=== PATIENT | male | born 1950 | race Caucasian/White ===

== ENCOUNTER 2016-06-30 17:27 | Emergency (ER) | payer OTHER ==
[~2016-06-30] VITALS: Ht 177.8 cm; Wt 99.8 kg
[~2016-06-30 17:27] MED LIST: LEVOTHYROXIN0.125 M1 PO; VIAGRA25 MG PO; VYTORIN 10 MG-21 TAB PO
--- NOTE | 2016-06-30 18:28 | ED HEAD/FACIAL INJ COMPLAINT ---
History of Present Illness General Chief Complaint: Facial or Head Injury Stated Complaint: PT HIT HIS HEAD ON A PIPE Source: patient Exam Limitations: no limitations Vital Signs & Intake/Output Vital Signs & Intake/Output Vital Signs Date Time Temp Pulse Resp B/P Pulse O2 O2 Flow FiO2 Ox Delivery Rate 06/30 1845 84 18 148/81 99 Room Air 06/30 1813 98 Room Air 06/30 1736 97.6 96 18 149/84 97 Room Air ED Intake and Output 07/01 0000 06/30 1200 Intake Total Output Total Balance Patient 220 lb Weight Allergies Coded Allergies: MDX - Shellfish (SHELLFISH) (Severe, HIVES 12/31/13) Reconcile Medications Ezetimibe/Simvastatin (Vytorin 10 MG-20 MG) 1 TAB TAB 1 TAB PO DAILY CHOLESTEROL (Reported) Levothyroxine Sodium 0.125 MG TAB 1 TAB PO DAILY THYROID (Reported) Sildenafil Citrate (Viagra) 25 MG TABLET 1 TAB PO DAILY NEEDED PRN ED ( Reported) Triage Note: PT STATSE HE BUMPED HIS HEAD ON A PIPE AND NOW HAS A LAC TO THE TOP OF HIS HEAD, BLEEDING CONTROLED IN TRIAGE. PT STATES HE IS NOT UTD WITH HIS TETANUS. Triage Nurses Notes Reviewed? yes Onset: Abrupt Severity: mild Severity Numbers: 2 HPI: Patient is a 66-year-old male who presents to emergency room stating that while at work today patient stood up and struck the top aspect of his head and scalp to a metal pipe in which he suffered a laceration in which bleeding was controlled prior to arrival. Tetanus is unknown. Denies any loss of consciousness. Denies any neck pain back pain and blurred vision headaches, vomiting and is otherwise without complaints. No medications given prior to arrival (ROCAEL YOO) Past History Travel History Traveled to [place] past 21 day No Medical History Any Pertinent Medical History? see below for history Cardiovascular: hyperlipidemia Endocrine: hypothyroidism Surgical History Surgical History: non-contributory Psychosocial History What is your primary language Croatian Tobacco Use: Quit >30 days ago ETOH Use: denies use Illicit Drug Use: denies illicit drug use Family History Hx Contributory? No (ROCAEL YOO) Review of Systems Review of Systems Constitutional: Reports: no symptoms. EENTM: Reports: no symptoms. Respiratory: Reports: no symptoms. Cardiovascular: Reports: no symptoms. GI: Reports: no symptoms. Genitourinary: Reports: no symptoms. Musculoskeletal: Reports: no symptoms. Skin: Reports: see HPI. Neurological/Psychological: Reports: see HPI. Denies: headache. Hematologic/Endocrine: Reports: see HPI, bleeding. Immunologic/Allergic: Reports: no symptoms. All Other Systems: Reviewed and Negative (ROCAEL YOO) Physical Exam Physical Exam General Appearance: no apparent distress, alert Cranial Nerves: normal hearing, normal speech, PERRL Comments: Well-developed well-nourished person in no acute distress HEENT: Normal EENT exam, extraocular motion intact, no nystagmus. Pupils equally round and reactive to light and accommodation. Nose is atraumatic. External auditory canal and Tympanic membranes clear. Pharynx normal. No swelling or edema. Neck: Supple, no lymphadenopathy, normal range of motion without pain or tenderness No central spinous tenderness Back: Nontender, no CVA tenderness. No central spinous tenderness Cardiovascular: Regular rate and rhythms no murmurs rubs or gallops, normal JVP Respiratory: Chest nontender. No respiratory distress.breath sounds clear to auscultation bilaterally Abdomen: Soft, nontender nondistended, no appreciable organomegaly. Normal bowel sounds. No ascites Extremity: No edema, no calf tenderness to palpation, normal and equal pulses. Neuro: Alert oriented x3, motor sensory normal, cranial nerves II through XII grossly intact Negative Romberg. Skin: See diagram Psych: Mood and affect is normal, memory and judgment is normal. Diagram Head: 1) 1 cm subcutaneous laceration noted with no active bleeding nontender no surrounding hematoma (ROCAEL YOO) Progress Differential Diagnosis: c-spine injury, facial fracture, globe injury, ICH, orbit fracture, skull fracture Plan of Care: Patient currently shows no garcia signs no hemo-TYMPANUM no concerns of basilar skull fracture. Cranial nerves intact. Patient was asymptomatic. No central spinous pain. No loss of consciousness acting at baseline normal steady gait patient does not require CT scan to rule out ICH this time. The scalp laceration was cleaned with peroxide and Betadine and sterile water and which then #2 emma were applied which margins were revised bacitracin was applied patient tolerated well. Tetanus was updated (ROCAEL YOO) Departure Departure Disposition: HOME OR SELF CARE Condition: Stable Clinical Impression Primary Impression: Scalp laceration Referrals: DEXTER LYNCH,GILBERTO Arvizu (PCP/Family) Additional Instructions: DISCUSSED BEGIN TO APPLY BACITRACIN TO THE AREA ONCE A DAY FOR THE FOLLOWING 4 DAYS. IF signs of infection occur such as redness, pain, swelling, discharge return to emergency room immediately. Return to emergency room in 7 days for staple removal. If symptoms worsen return to emergency room Departure Forms: Customer Survey General Discharge Information (RADHA GONSALEZ,ROCAEL) PA/TERMITE TECHNICIAN Co-Sign Statement Statement: ED Attending supervision documentation- [X] I saw and evaluated the patient. I have also reviewed all the pertinent lab results and diagnostic results. I agree with the findings and the plan of care as documented in the PA's/TERMITE TECHNICIAN's documentation. [X] I have reviewed the ED Record and agree with the PA's/TERMITE TECHNICIAN's documentation. [] Additions or exceptions (if any) to the PAs/TERMITE TECHNICIAN's note and plan are summarized below: [] (KYLE LYNCH,ANGELI)
[2016-06-30 18:45] VITALS: BP 148/81
== END 2016-06-30 18:41 ==
LOC: ERH 17:27
DX: S01.01XA Laceration without foreign body of scalp, initial encounter (principal); W22.8XXA Striking against or struck by other objects, initial encounter
CPT/HCPCS: 90471; 90714

== ENCOUNTER 2016-07-14 18:50 | Emergency (ER) | payer OTHER ==
[~2016-07-14] VITALS: Ht 177.8 cm; Wt 99.8 kg
[2016-07-14 19:23] VITALS: BP 154/70
--- NOTE | 2016-07-14 19:27 | ED ANIMAL BITE/WOUND CHECK ---
History of Present Illness General Chief Complaint: Suture Removal/Wound Recheck Stated Complaint: STAPLE REMOVAL Source: patient, old records Exam Limitations: no limitations Vital Signs & Intake/Output Vital Signs & Intake/Output Vital Signs Date Time Temp Pulse Resp B/P Pulse O2 O2 Flow FiO2 Ox Delivery Rate 07/14 1922 97.7 86 20 154/70 97 Room Air Room Air Allergies Uncoded Allergies: LOBSTER (Severe, ANAPHYLAXIS, THROAT, DIARRHEA, RASH 07/14/16) Reconcile Medications Ezetimibe/Simvastatin (Vytorin 10 MG-20 MG) 1 TAB TAB 1 TAB PO DAILY CHOLESTEROL (Reported) Levothyroxine Sodium 0.125 MG TAB 1 TAB PO DAILY THYROID (Reported) Sildenafil Citrate (Viagra) 25 MG TABLET 1 TAB PO DAILY NEEDED PRN ED ( Reported) Triage Note: PT TO ED FOR STAPLE REMOVAL (2) FROM TOP OF HEAD, BEEN IN 2 WEEKS TODAY. Triage Nurses Notes Reviewed? yes Onset: Abrupt Duration: week(s): (1) Timing: recent history Injury Environment: home Severity: mild Severity Numbers: 3 No Modifying Factors: none Associated Symptoms: denies HPI: 66-year-old male presents for staple removal status post sustaining laceration to his scalp one week ago after hitting his head on a metal pipe. The patient denies any symptoms at this time there is no pain (ROCAEL HUITRON) Past History Travel History Traveled to [place] past 21 day No Medical History Any Pertinent Medical History? 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 No (ROCAEL HUITRON) Review of Systems Review of Systems Constitutional: Reports: see HPI. All Other Systems: Reviewed and Negative Comments Review of systems: See HPI, All other systems negative. Constitutional, no chills no fever, no malaise HEENT: No visual changes no sore throat no congestion Cardiovascular: No chest pain , no palpitation Skin, no rashes, no change in skin Respiratory: No dyspnea no cough no sputum GI: No nausea no vomiting, no diarrhea : No dysuria Muscle skeletal: No joint pain, no joint swelling, no back pain, no neck pain, Neurologic: No numbness no headache Psych: No stress n Heme/endocrine: No bruising no bleeding Immunology: No lymphadenopathy (ROCAEL HUITRON) Physical Exam Physical Exam General Appearance: well developed/nourished, no apparent distress, alert, awake Comments: Well-developed well-nourished patient in no apparent distress. HEENT: Stable 2 noted to the parietal scalp, there is no surrounding induration and fluctuance tenderness no erythema, extraocular motion intact Neck: Supple, FROM, back: from Cardiovascular: Regular rate and rhythms no murmurs rubs Respiratory: No respiratory distress. Patient speaking in full complete sentences. Breath sounds clear to auscultation bilaterally: NO W/R/R Extremities: full range of motion Neuro: Alert and oriented x3 Skin: Warm & dry;No appreciable rash on exposed skin Psych: Mood affect normal, normal memory normal judgment. (ROCAEL HUITRON) Progress Differential Diagnosis: abscess, cellulitis Plan of Care: [place] 2 removed by me there is no wound dehiscence patient tolerated procedure well (ROCAEL HUITRON) Departure Departure Time of Disposition: 1926 Disposition: HOME OR SELF CARE Condition: Stable Clinical Impression Primary Impression: Removal of staple Referrals: DEXTER LYNCH,GILBERTO Arvizu (PCP/Family) Departure Forms: Customer Survey General Discharge Information (ROCAEL HUITRON) PA/SCRAP PILER Co-Sign Statement Statement: ED Attending supervision documentation- [] I saw and evaluated the patient. I have also reviewed all the pertinent lab results and diagnostic results. I agree with the findings and the plan of care as documented in the PA's/SCRAP PILER's documentation. [X] I have reviewed the ED Record and agree with the PA's/SCRAP PILER's documentation. [] Additions or exceptions (if any) to the PAs/SCRAP PILER's note and plan are summarized below: [] (KYLE LYNCH,ANGELI)
== END 2016-07-14 20:00 ==
LOC: ERH 18:50
DX: S01.01XD Laceration without foreign body of scalp, subsequent encounter (principal)
CPT/HCPCS: 99281

== ENCOUNTER 2017-08-26 11:22 | Emergency (ER) | payer OTHER ==
[~2017-08-26] VITALS: Ht 177.8 cm; Wt 102.1 kg
[2017-08-26 11:46] LABS: ABSOLUTE BASOPHIL COUNT 0 /CUMM (0.0-0.2); ABSOLUTE EOSINOPHIL COUNT 0.1 /CUMM (0.0-0.7); ABSOLUTE LYMPH COUNT 2.5 /CUMM (1.2-3.4); ABSOLUTE MONOCYTE COUNT 0.6 /CUMM (0.10-0.60); BASOPHIL % 0.6 % (0.0-2.0); EOSINOPHIL % 1.6 % (0-5); GRANULOCYTE % 55.4 % (42.2-75.2); HEMATOCRIT 47.6 % (42-52); MEAN CORPUSCULAR HGB 29.5 PG (27.0-31.0); MEAN CORPUSCULAR HGB CONC 33.2 G/DL (33.0-37.0); MEAN CORPUSCULAR VOLUME 89.1 FL (80.0-94.0); MEAN PLATELET VOLUME 6.6 FL (7.4-10.4); PLATELET COUNT 251 /CUMM (130-400); RBC DISTRIBUTION WIDTH 13.2 % (11.5-14.5); RED BLOOD CELL CT 5.34 /CUMM (4.70-6.10); WHITE BLOOD CELL COUNT 7.2 /CUMM (4.8-10.8)
--- NOTE | 2017-08-26 12:42 | ED GENERAL ADULT ---
History of Present Illness General Chief Complaint: Dizziness Stated Complaint: SIB DR RENTERIA, FOR LIGHT HEADEDNESS DIZZINESS Source: patient Exam Limitations: no limitations Vital Signs & Intake/Output Vital Signs & Intake/Output Vital Signs Date Time Temp Pulse Resp B/P B/P Pulse O2 O2 Flow FiO2 Mean Ox Delivery Rate 08/26 1542 97.6 66 20 160/90 97 Room Air 08/26 1344 Room Air Room Air 08/26 1133 97.0 72 15 152/105 97 Room Air Room Air ED Intake and Output 08/27 0000 08/26 1200 Intake Total 1000 Output Total Balance 1000 Intake, IV 1000 Patient 225 lb Weight Weight Reported by Patient Measurement Method Allergies Uncoded Allergies: LOBSTER (Severe, ANAPHYLAXIS, THROAT, DIARRHEA, RASH 07/14/16) Reconcile Medications Aspirin (Ecotrin*) 81 MG TABLET.DR 1 TAB PO DAILY HEART HEALTH (Reported) Ezetimibe/Simvastatin (Vytorin 10-20 MG Tablet) 10 MG-20 MG TABLET 1 TAB PO DAILY CHOLESTEROL (Reported) Levothyroxine Sodium 125 MCG TABLET 1 TAB PO DAILY THYROID (Reported) Sildenafil Citrate (Viagra) 50 MG TABLET 1 TAB PO AD PRN ERECTILE DYSFUNCTION (Reported) 1 hour before sexual activity Triage Note: PT SENT TO ED BY DR. RENTERIA FOR LIGHT HEADEDNESS AND DIZZINESS WORSE WITH STANDING X 3 DAYS. PT DENIES CHEST PAIN, CHANGE IN VISION. HYPERTENSIVE IN TRIAGE 152/105. EKG DONE IN TRIAGE. Triage Nurses Notes Reviewed? yes Onset: Abrupt Duration: years Timing: intermittent HPI: 67 y/o male with h/o HLD and hypothyroid presenting with intermittent light headedness. Pt reports intermittent light headedness that only occurs with standing up too quickly, has occured for approx the past 20 years. Has never sought medical evaluation because it is usually infrequent and on avg occurs 2-3 times a month. Pt presents to the ED now because he was not feeling well yesterday, reports fatigue and decreased po intake, and states that the light headedness occur constantly throughout the daty yesterday each time he stood up too quickly. Is feeling better today, feels back to baseline, and denies light headedness today. Denies CP or SOB with any of the episodes. Not on any BP meds. (Viri GONSALEZ,Razia) Past History Travel History Traveled to [place] past 21 day No Medical History Any Pertinent Medical History? 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 No (Razia Quinteros) Review of Systems Review of Systems Constitutional: Reports: no symptoms. EENTM: Reports: no symptoms. Respiratory: Reports: no symptoms. Cardiovascular: Reports: no symptoms. GI: Reports: no symptoms. Genitourinary: Reports: no symptoms. Musculoskeletal: Reports: no symptoms. Skin: Reports: no symptoms. Neurological/Psychological: Reports: see HPI, other (light headedness). Hematologic/Endocrine: Reports: no symptoms. Immunologic/Allergic: Reports: no symptoms. (Razia Quinteros) Physical Exam Physical Exam General Appearance: well developed/nourished, no apparent distress, alert, awake , comfortable Head: atraumatic, normal appearance Eyes: Bilateral: normal appearance, PERRL, EOMI. Ears, Nose, Throat: normal ENT inspection Neck: normal inspection, supple Respiratory: normal breath sounds, lungs clear Cardiovascular: regular rate/rhythm, normal peripheral pulses Gastrointestinal: soft, non-tender Back: normal inspection Extremities: normal inspection Neurologic/Psych: no motor/sensory deficits, awake, alert, oriented x 3, normal gait, normal mood/affect, office sweeper II-XII nml as tested, normal cerebellar function Reflexes: 2+: bicep (R), bicep (L), tricep (L), tricep (L), knee (R), knee (L), ankle (R), ankle (L). Skin: intact, normal color, warm/dry Core Measures ACS in differential dx? Yes CVA/TIA Diagnosis: No Sepsis Present: No Sepsis Focused Exam Completed? No (Razia Quinteros) Progress Differential Diagnoses I considered the following diagnoses in my evaluation of the patient: [ Intermittnet light headedness likely from recurrent orthostasis, and like exacerbated yesterday 2/2 dehdyration vs hypoglycemia 2/2 decreased po intake. Low concern for ACS vs cardiac arrhythmia vs valvular disease vs acute neuro event.] Plan of Care: Orders Procedure Date/time Status TSH REFLEX 08/26 1309 Complete TROPONIN LEVEL 08/26 1136 Complete COMPREHENSIVE METABOLIC PANEL 08/26 1136 Complete CBC WITHOUT DIFFERENTIAL 08/26 1136 Complete EKG 08/26 1126 Active Laboratory Tests 08/26/17 1331: TSH &T3 &Free T4 Intrp 1.610 08/26/17 1141: Anion Gap 12, Estimated GFR > 60, BUN/Creatinine Ratio 18.9, Glucose 146 H, Calcium 9.4, Total Bilirubin 0.7, AST 17, ALT 29, Alkaline Phosphatase 86, Troponin I < 0.01, Total Protein 7.2, Albumin 4.2, Globulin 3.0, Albumin/ Globulin Ratio 1.4, CBC w Diff NO MAN DIFF REQ, RBC 5.34, MCV 89.1, MCH 29.5, MCHC 33.2, RDW 13.2, MPV 6.6 L, Gran % 55.4, Lymphocytes % 34.6, Monocytes % 7.8, Eosinophils % 1.6, Basophils % 0.6, Absolute Granulocytes 4.0, Absolute Lymphocytes 2.5, Absolute Monocytes 0.6, Absolute Eosinophils 0.1, Absolute Basophils 0 Labs unremarkable, including neg trop. EKG shows sinus rhythm with no ischemic changes. Pt has remained asymptomatic, and orthostatic vitals unremarkable. Discussed with EDMD and pt cleared for discharge home. Instructed to f/u with PMD and given strict return precautions. Initial ED EKG: NSR, no ST T wave changes (Razia Quinteros) Departure Departure Disposition: HOME OR SELF CARE Condition: Stable Clinical Impression Primary Impression: Light headedness Referrals: Juliet LYNCH,Jordy Arvizu (PCP/Family) Additional Instructions: Follow-up with your primary care provider for reevaluation. Return to emergency department for any worsening symptoms. Departure Forms: Customer Survey General Discharge Information (Razia Quinteros) PA/BOOT AND SHOE REPAIRMAN Co-Sign Statement Statement: ED Attending supervision documentation- [X] I saw and evaluated the patient. I have also reviewed all the pertinent lab results and diagnostic results. I agree with the findings and the plan of care as documented in the PA's/BOOT AND SHOE REPAIRMAN's documentation. [] I have reviewed the ED Record and agree with the PA's/BOOT AND SHOE REPAIRMAN's documentation. [] Additions or exceptions (if any) to the PAs/BOOT AND SHOE REPAIRMAN's note and plan are summarized below: [] (Samuel Escalante DO) Critical Care Note Critical Care Note Critical Care Time: non-applicable (Viri GONSALEZ,Razia)
[2017-08-26] MEDS ORDERED: VYTORIN 10-201 EACH PO (13:41)
[2017-08-26] MEDS ORDERED: LEVOTHYROXINE125 MCG PO (13:42)
[2017-08-26] MEDS ORDERED: VIAGRA50 MG PO (13:43)
[2017-08-26] MEDS ORDERED: ASPIRIN EC81 M1 PO (13:43)
--- NOTE | 2017-08-26 14:12 | RADIOLOGY REPORT ---
EXAMINATION: CHEST 2 VIEWS CLINICAL INFORMATION: Lightheadedness. Concern for cardiomegaly. COMPARISON: None. TECHNIQUE: PA and lateral views of the chest were obtained. FINDINGS: The cardiac silhouette is not enlarged. The mediastinal and hilar contours are unremarkable. There are neither pleural effusions nor pneumothoraces. There are no consolidations. The osseous structures are unremarkable. IMPRESSION: No evidence for acute disease.
[2017-08-26 15:42] VITALS: BP 160/90
== END 2017-08-26 16:48 ==
LOC: ERH 11:22
PROVIDERS: Emergency Medicine
DX: R42 Dizziness and giddiness (principal)
CPT/HCPCS: 71046; 93005; 93010; 96360; 96361